=== PATIENT | female | born 1985 | race Caucasian/White ===

== ENCOUNTER 2016-12-01 09:58 | Emergency (ER) | payer OTHER ==
[~2016-12-01] VITALS: Ht 160 cm; Wt 52.3 kg
[2016-12-01 10:09] VITALS: BP 133/89; PULSE 76; RESP 12; O2SAT 99
--- NOTE | 2016-12-01 10:37 | ED.REPORT ---
HPI-Chest Pain Under 40 Date of Service Dec 01, 2016 ED Provider: The patient is a 30 year old female who presents to the emergency department complaining of sharp, stabbing chest pain that began suddenly about 30 minutes prior to arrival while she was sitting at work. The pain radiated into her abdomen and was worse with deep breaths or movement. The pain lasted 5-8 minutes and is currently resolved. She denies nausea, vomiting, diaphoresis, shortness of breath, cough, extremity pain, lightheadedness, dizziness or syncope. She has had similar episodes over the last 15 years that occur at least every month. In the last few years her pain has become more severe. Her last episode was in mid October. Over the last 6 months she has noticed a sharp twinge of pain that occurs a few days before one of these episodes. Her pain does not seem to be brought on by any specific movements, food, exertion, or position. She has seen her regular doctor who recommended going to the emergency department if she has another episode. She states that she had an EKG and echocardiogram in [place] and was told she had a valve that didn't close all the way. She is otherwise healthy with no previous medical diagnoses. She is not on control. She has never had surgery. She does not smoke or drink. She exercises regularly without symptoms. Nursing Notes Stated Complaint: CHEST PAIN Chief Complaint: Chest Pain-Non Cardiac Nature Nursing Notes Reviewed: Yes Allergies: Coded Allergies: Penicillins (Verified Allergy, Severe, ANPHYLAXIS, 12/01/16) General Time Seen by MD: 10:36 Chief Complaint Chest pain Hx Obtained From: Patient Arrived By: Walk-in Sudden in Onset?: Yes Onset Occurred: 16 - 30 minutes ago Symptom Duration: 1 - 15 minutes Quality: Painful, Sharp, Stabbing Severity: Current: No pain currently Severity: Maximum: Severe Recent Healthcare: No recent doctor visit, No recent hospitalization Similar Sx Previous: Yes Risk Factors PERC Rule PERC Result: All PERC criteria "No", PERC rule satisfied Well's Criteria for PE Well's PE Score: 0-2 pts (low risk 3.6%) Past Medical History Past Medical History Transient episodes of chest pain over the last 15 years Otherwise healthy with no diagnosed medical problems Past Surgical History None Family History Noncontributory Smoking History Never Smoker Social History Alcohol Use: Denies alcohol use Drug Use: Denies drug use Other Social History: Good social support, , Local resident Ambulatory Status Independent Review of Systems Constitutional: Denies: Chills, Fever Respiratory: Reports: Pleuritic pain, Denies: Non-productive cough, Shortness of breath Cardiovascular: Reports: Chest pain GI: Reports: Abdominal pain, Denies: Nausea Musculoskeletal: Denies: Extremity pain Skin: Denies Diaphoresis Complete sys rev & neg: except as marked. Physical Exam Initial Vital Signs Vital Signs (First) Date Time Temp Pulse Resp B/P Pulse Ox O2 Delivery O2 Flow Rate FiO2 12/01/16 10:09 36.3 76 12 133/89 99 Room Air Initial VS: Reviewed Head / Eyes: Atraumatic, Normocephalic, PERRL ENT: Mucous membranes moist, Conjunctiva normal, No scleral icterus Neck: Supple, Non-tender, Full range of motion Abdomen / GI: Soft, Non-tender, No guarding, No rebound, No distention Lymphatic: No lymphadenopathy Extremities: Vascular intact, Neuro intact, No swelling, No tenderness Skin: Warm, Dry, No cyanosis Neurologic: Alert, Oriented, Nonfocal Psychiatric: Mood/affect normal, Behavior normal, Normal thought content General/Constitutional: Awake, Alert, No acute distress, Well appearing Respiratory / Chest: Atraumatic, Breath sounds NL, Breath sounds = bilat, No respiratory distress, No rales, No rhonchi, No wheezing, No chest tenderness Cardiovascular: Heart rate NL, Regular rhythm, Heart sounds NL, No gallop, No murmurs, No rubs, Peripheral circulation NL, Pulses = bilaterally, No gross BP differential Interpretation & Diagnostics Lab Results Interpretation Result Diagram: 12/01/16 1110 12/01/16 1110 Test 12/01/16 10:38 12/01/16 11:10 Hold Urine Received (Received) White Blood Count 6.4th/mm3 (3.8-10.1) Red Blood Count 4.73mil/mm3 (3.90-5.20) Hemoglobin 14.2g/dL (12.0-15.6) Hematocrit 41.3% (35.0-46.0) Mean Corpuscular Volume 87.3fL (81-100) Mean Corpuscular Hemoglobin 30.0pg (27.0-35.0) Mean Corpuscular Hemoglobin Concent 34.4% (32.0-37.0) Red Cell Distribution Width 12.5% (12.3-15.4) Platelet Count 293bil/L (150-400) Neutrophils (%) (Auto) 61.1% (40-74) Lymphocytes (%) (Auto) 27.8% (14-46) Monocytes (%) (Auto) 8.6% (4-12) Eosinophils (%) (Auto) 1.7% (0-5) Basophils (%) (Auto) 0.6% (0-3) Sodium Level 137mEq/L (134-144) Potassium Level 3.8mEq/L (3.5-5.2) Chloride Level 100mEq/L (97-108) Carbon Dioxide Level 24mmol/L (18-29) Blood Urea Nitrogen 12mg/dL (6-20) Creatinine 0.65mg/dL (0.57-1.00) Estimat Glomerular Filtration Rate 153mL/min (>59) Glucose Level 108mg/dL (60-99) Calcium Level 9.2mg/dL (8.5-10.1) Magnesium Level 2.4mg/dL (1.6-2.6) Total Bilirubin 0.5mg/dL (0.0-1.2) Aspartate Amino Transf (AST/SGOT) 22U/L (0-50) Alanine Aminotransferase (ALT/SGPT) 17U/L (0-32) Alkaline Phosphatase 43U/L (25-150) Troponin T < 0.010ug/L (0.0-0.011) Total Protein 7.8g/dL (6.4-8.4) Albumin 4.7g/dL (3.4-5.0) Hold Parsons Top Tube Received (Received) ECG Interpretation ECG Interpretation: Sinus rhythm with a rate of 68 Probable LVH Time: 10:40 Interpreted by: ED physician X-Ray Chest Interpretation Chest Xray Interpretation: IMPRESSION: Normal for age. [facility] chest pain is not seen. Dictated by: Jose De M.D. on 12/01/2016 at 11:42 Interpretation / Wet Read by: Interpret - Radiologist Re-Eval/Medical Decision Med Decision/Clinical Course Overall assessment stomach acute coronary syndrome and the patient is sufficiently low risk for pulmonary embolism that no d-dimer was even obtained. The symptoms been intermittent for 5-6 years. She will be discharged and recommended to follow-up with her primary care for outpatient Holter monitoring, echocardiogram and possibly stress testing as directed by primary care. Return precautions given. Source of Hx: Old records Re-Evaluation/Progress : Time of Eval: 12:16 Re-Evaluation/Progress Note: Rechecked the patient. Discussed workup results, diagnosis, and plan for discharge. All questions were addressed. Counseled Regarding: Diagnosis, Lab results, Need for follow-up, When/why to return to ED Discharge & Departure Primary Impression: Chest pain Chest pain type: unspecified Qualified Code: R07.9 - Chest pain, unspecified Disposition: Home Discharge Condition All VS Reviewed: Yes Condition: Stable Patient Instructions: Chest Pain (ED) Additional Instructions: Thank you for entrusting us with your care today. Your workup today is reassuring. Call your primary care provider today to schedule a followup appointment in the next few days. You may need to have an echocardiogram, stress test, and/or Holter monitor. We have also given you a referral to a oncology transplant network manager. Please return to the emergency department if your pain lasts longer than 15 minutes, or for any new or concerning symptoms. Referrals: Kimberley Madsen MD (PCP) Tomás Zamorano MD[facility] Attestation Portions of this note were transcribed by Ruby Olguin. I, Dr. Puri personally performed the history, physical exam and medical decision-making; I reviewed and confirmed the accuracy of the information in the transcribed note. Signed by: Huma Almaguer, 12/01/2016 and 1220. copies to: Kimberley Madsen MD, Timothy S DO Dec 01, 2016 10:37 Ruby Olguin Dec 01, 2016 10:40
[2016-12-01] MEDS ORDERED: Alum-Mag Hydrox-Simeth 30 mL Suspension PO ONE (10:55)
[2016-12-01 11:29] LABS: BASOPHILS % (AUTO) 0.6 % (0-3); EOSINOPHILS % (AUTO) 1.7 % (0-5); MONOCYTES % (AUTO) 8.6 % (4-12); Mean Corpuscular Volume 87.3 fL (81-100); NEUTROPHILS % (AUTO) 61.1 % (40-74); Platelet Count 293 bil/L (150-400)
[2016-12-01 11:40] VITALS: BP 109/63; PULSE 75; RESP 14; O2SAT 99
--- NOTE | 2016-12-01 11:44 | DRSVH ---
PROCEDURE: X-RAY CHEST, TWO VIEWS ([id number]) INDICATIONS: chest pain, dyspnea TECHNIQUE: 2 views of the chest were acquired. COMPARISON: SHELLEY Leon, CHEST 2VW, 04/16/2015, 12:28 PM. FINDINGS: Surgical changes and devices: None. Lungs and pleura: No pleural effusions or pneumothorax. Lungs are clear. Mediastinum: Mediastinal contours are normal. Heart size is normal. Bones and chest wall: No suspicious bony abnormalities. Soft tissues appear unremarkable. IMPRESSION: Normal for age. [facility] chest pain is not seen. Dictated by: Jose De M.D. on 12/01/2016 at 11:42 Approved by: Jose De M.D. on 12/01/2016 at 11:42
[2016-12-01 12:02] LABS: TROPONIN T < 0.010 ug/L (0.0-0.011)
[2016-12-01 12:07] LABS: Magnesium 2.4 mg/dL (1.6-2.6)
[2016-12-01 12:52] VITALS: BP 109/74; PULSE 73; RESP 16; O2SAT 97
== END 2016-12-01 12:51 | disposition home or self-care (01) ==
LOC: SED 09:58
DX: R07.9 Chest pain, unspecified (principal); Z88.0 Allergy status to penicillin